=== PATIENT | male | born 1945 | race Caucasian/White ===

== ENCOUNTER 2018-12-17 10:22 | Inpatient (IN) ==
[2018-12-17] MEDS ORDERED: 0.9 % Sodium Chloride 1,000 ML IVC ONE (12:00)
[2018-12-17] MEDS ORDERED: Ondansetron 4 MG/2 ML VIAL IVP ONE (12:00)
[2018-12-17 12:11] LABS: Basophils # 0.1 K/mcL (0.0-0.2); Basophils % 0.3 %; Eosinophils # 0.1 K/mcL (0.0-0.6); Eosinophils % 0.3 %; Hematocrit 45.2 % (37.5-50.1); Hemoglobin 14.2 g/dL (12.9-16.9); Immature Granulocytes % 0.4 % (0-4); Lymphocytes % 15.3 %; Mean Corpuscular HGB Conc 31.4 g/dL (31.6-35.5); Mean Corpuscular Hemoglobin 28.5 pg (28.0-33.3); Mean Corpuscular Volume 90.8 fL (83.0-100.0); Mean Platelet Volume 9.4 fL (9.4-12.4); Monocytes # 1.5 K/mcL (0.0-1.3); Monocytes % 7.6 %; Platelet Count 423 K/mcL (140-400); Red Blood Count 4.98 M/mcL (4.19-5.50); Red Cell Distribution Width 13.9 % (11.5-14.5); Segmented Neutrophils % 76.1 %; White Blood Count 19.7 K/mcL (4.3-11.1)
[2018-12-17 12:36] LABS: Alanine Aminotransferase 7 Units/L (7-52); Albumin 4.5 g/dL (3.5-5.7); Albumin/Globulin Ratio 1.3 (1.1-2.2); Alkaline Phosphatase 165 Units/L (34-104); Aspartate Amino Transferase 16 Units/L (13-39); BUN/Creatinine Ratio 20 (6-26); Bilirubin,Direct 0.2 mg/dL (0.0-0.2); Bilirubin,Indirect 0.5 mg/dL (0.0-1.2); Bilirubin,Total 0.7 mg/dL (0.3-1.0); Blood Urea Nitrogen 20 mg/dL (8-23); Calcium 10.2 mg/dL (8.6-10.3); Carbon Dioxide 29 mEq/L (23-29); Chloride 99 mEq/L (98-107); Globulin 3.5 g/dL (2.4-3.5); Glucose 119 mg/dL (70-105); Lipase < 3 Units/L (11-82); Osmolality,Calculated 288 (280-300); Potassium 3.9 mEq/L (3.5-5.1); Sodium 137 mEq/L (136-145); eGFR For African Americans > 60 (> 60); eGFR For Non-African Americans > 60 (> 60)
[2018-12-17] MEDS ORDERED: Famotidine 20 MG/2 ML VIAL IVP ONE (13:10)
[2018-12-17] MEDS ORDERED: Ondansetron 4 MG/2 ML VIAL IVP PRN (14:47)
[2018-12-17] MEDS: Piperacillin/Tazobactam 3.375 GM in 0.9 % Sodium Chloride Mini Bag 100 ML IVPB SCH ×2 (15:59→23:55)
[2018-12-17] MEDS: 0.9 % Sodium Chloride 1,000 ML IVC SCH (15:59)
[2018-12-17] MEDS: diazePAM 10 MG/2 ML SYRINGE IVP SCH ×2 (16:01→23:56)
[2018-12-17] MEDS: *HR* Heparin 5,000 UNIT/ML VIAL SQ SCH (17:12)
[2018-12-18 06:17] LABS: Hematocrit 34.7 % (37.5-50.1); Mean Corpuscular HGB Conc 31.1 g/dL (31.6-35.5); Mean Corpuscular Hemoglobin 28.4 pg (28.0-33.3); Mean Corpuscular Volume 91.3 fL (83.0-100.0); Mean Platelet Volume 9.3 fL (9.4-12.4); Platelet Count 270 K/mcL (140-400); Red Cell Distribution Width 13.8 % (11.5-14.5)
[2018-12-18 06:20] LABS: Hemoglobin 10.8 g/dL (12.9-16.9); White Blood Count 8.2 K/mcL (4.3-11.1)
[2018-12-18] MEDS: *HR* Heparin 5,000 UNIT/ML VIAL SQ SCH ×2 (06:21→18:09)
[2018-12-18 06:38] LABS: BUN/Creatinine Ratio 20 (6-26); Blood Urea Nitrogen 17 mg/dL (8-23); Calcium 8.5 mg/dL (8.6-10.3); Carbon Dioxide 25 mEq/L (23-29); Chloride 105 mEq/L (98-107); Glucose 89 mg/dL (70-105); Osmolality,Calculated 287 (280-300); Potassium 3.7 mEq/L (3.5-5.1); Sodium 138 mEq/L (136-145); eGFR For African Americans > 60 (> 60); eGFR For Non-African Americans > 60 (> 60)
[2018-12-18] MEDS: Piperacillin/Tazobactam 3.375 GM in 0.9 % Sodium Chloride Mini Bag 100 ML IVPB SCH ×2 (09:21→14:57)
[2018-12-18] MEDS: 0.9 % Sodium Chloride 1,000 ML IVC SCH ×3 (09:21→22:24)
[2018-12-18] MEDS: diazePAM 10 MG/2 ML SYRINGE IVP SCH (09:23)
[2018-12-18] MEDS ORDERED: *HR* LORazepam 2 MG/ML VIAL IVP PRN (10:35)
[2018-12-18] MEDS ORDERED: Saliva Stimulant 100ml BOTTLE PO PRN (10:42)
[2018-12-18] MEDS ORDERED: Chloraseptic Spray 177 ML BOTTLE MM PRN (10:42)
[2018-12-18] MEDS ORDERED: Ketorolac 30 MG/ML VIAL IVP ONE (10:46)
[2018-12-18] MEDS: Pantoprazole 40 MG VIAL IVP SCH (11:33)
[2018-12-18] MEDS: Levothyroxine Sodium 100 MCG VIAL IVP SCH (11:33)
[2018-12-19] MEDS: Piperacillin/Tazobactam 3.375 GM in 0.9 % Sodium Chloride Mini Bag 100 ML IVPB SCH ×2 (00:10→06:58)
[2018-12-19 06:03] LABS: Basophils % 0.7 %; Eosinophils # 0.1 K/mcL (0.0-0.6); Eosinophils % 1.3 %; Hematocrit 33.4 % (37.5-50.1); Hemoglobin 10.7 g/dL (12.9-16.9); Immature Granulocytes % 0.3 % (0-4); Lymphocytes # 1.8 K/mcL (0.6-4.6); Lymphocytes % 28.6 %; Mean Corpuscular Hemoglobin 28.7 pg (28.0-33.3); Mean Corpuscular Volume 89.5 fL (83.0-100.0); Mean Platelet Volume 9.2 fL (9.4-12.4); Monocytes # 0.7 K/mcL (0.0-1.3); Monocytes % 10.6 %; Neutrophils # 3.6 K/mcL (1.6-8.9); Platelet Count 236 K/mcL (140-400); Red Blood Count 3.73 M/mcL (4.19-5.50); Red Cell Distribution Width 13.3 % (11.5-14.5); Segmented Neutrophils % 58.5 %; White Blood Count 6.2 K/mcL (4.3-11.1)
[2018-12-19] MEDS: *HR* Heparin 5,000 UNIT/ML VIAL SQ SCH ×2 (06:05→17:41)
[2018-12-19 06:20] LABS: BUN/Creatinine Ratio 16 (6-26); Blood Urea Nitrogen 13 mg/dL (8-23); Calcium 8.5 mg/dL (8.6-10.3); Carbon Dioxide 23 mEq/L (23-29); Chloride 104 mEq/L (98-107); Glucose 67 mg/dL (70-105); Osmolality,Calculated 280 (280-300); Potassium 3.3 mEq/L (3.5-5.1); Sodium 136 mEq/L (136-145); eGFR For African Americans > 60 (> 60); eGFR For Non-African Americans > 60 (> 60)
[2018-12-19 06:23] LABS: Magnesium 1.6 mg/dL (1.6-2.6); Phosphorous 3.2 mg/dL (2.7-4.5)
[2018-12-19] MEDS: 0.9 % Sodium Chloride 1,000 ML IVC SCH ×2 (08:03→22:45)
[2018-12-19] MEDS ORDERED: diazePAM 2 MG TABLET PO PRN (11:40)
[2018-12-19] MEDS: Gabapentin 100 MG CAPSULE PO SCH (19:59)
[2018-12-20 04:34] LABS: Hematocrit 32.9 % (37.5-50.1); Hemoglobin 10.3 g/dL (12.9-16.9); Mean Corpuscular HGB Conc 31.3 g/dL (31.6-35.5); Mean Corpuscular Hemoglobin 28.4 pg (28.0-33.3); Mean Corpuscular Volume 90.6 fL (83.0-100.0); Mean Platelet Volume 9.4 fL (9.4-12.4); Platelet Count 255 K/mcL (140-400); Red Blood Count 3.63 M/mcL (4.19-5.50); Red Cell Distribution Width 13.4 % (11.5-14.5); White Blood Count 5.1 K/mcL (4.3-11.1)
[2018-12-20 04:51] LABS: BUN/Creatinine Ratio 11 (6-26); Blood Urea Nitrogen 8 mg/dL (8-23); Calcium 8.5 mg/dL (8.6-10.3); Carbon Dioxide 27 mEq/L (23-29); Chloride 107 mEq/L (98-107); Glucose 85 mg/dL (70-105); Osmolality,Calculated 286 (280-300); Potassium 3.5 mEq/L (3.5-5.1); Sodium 139 mEq/L (136-145); eGFR For African Americans > 60 (> 60); eGFR For Non-African Americans > 60 (> 60)
[2018-12-20] MEDS: *HR* Heparin 5,000 UNIT/ML VIAL SQ SCH ×2 (06:10→17:01)
[2018-12-20] MEDS: Gabapentin 100 MG CAPSULE PO SCH ×2 (08:28→21:11)
[2018-12-20] MEDS ORDERED: traMADol 50 MG TABLET PO PRN (09:50)
[2018-12-20] MEDS ORDERED: Acetaminophen 325 MG TABLET PO PRN (09:50)
[2018-12-20] MEDS ORDERED: diazePAM 2 MG TABLET PO PRN (09:51)
[2018-12-21] MEDS: *HR* Heparin 5,000 UNIT/ML VIAL SQ SCH ×2 (05:30→17:13)
[2018-12-21] MEDS: 0.9 % Sodium Chloride 1,000 ML IVC SCH (07:22)
[2018-12-21] MEDS: Levothyroxine Sodium 100 MCG VIAL IVP SCH (07:22)
[2018-12-21] MEDS: Pantoprazole 40 MG VIAL IVP SCH (07:22)
[2018-12-21] MEDS: Gabapentin 100 MG CAPSULE PO SCH ×2 (08:26→20:56)
[2018-12-22] MEDS: *HR* Heparin 5,000 UNIT/ML VIAL SQ SCH ×2 (05:42→17:31)
[2018-12-22] MEDS ORDERED: *HR* FentaNYL (PF) 100 MCG/2 ML VIAL ONE (07:52)
[2018-12-22] MEDS ORDERED: *HR* Midazolam HCl 5 MG/5 ML VIAL IVP ONE ×2 (07:52→08:08)
[2018-12-22] MEDS ORDERED: *HR* FentaNYL (PF) 100 MCG/2 ML VIAL IVP ONE (08:08)
[2018-12-22] MEDS: Gabapentin 100 MG CAPSULE PO SCH ×2 (09:30→22:00)
[2018-12-22] MEDS ORDERED: Barium Sulfate (Liquid Polibar Plus) 1 BOTTLE ORAL.SUSP RC ONE (10:20)
[2018-12-22 12:02] LABS: Basophils % 0.5 %; Eosinophils # 0.1 K/mcL (0.0-0.6); Eosinophils % 1.3 %; Hematocrit 34.9 % (37.5-50.1); Immature Granulocytes % 0.2 % (0-4); Lymphocytes # 1.8 K/mcL (0.6-4.6); Lymphocytes % 29.1 %; Mean Corpuscular HGB Conc 31.5 g/dL (31.6-35.5); Mean Corpuscular Hemoglobin 28.8 pg (28.0-33.3); Mean Corpuscular Volume 91.4 fL (83.0-100.0); Mean Platelet Volume 9.2 fL (9.4-12.4); Monocytes # 0.5 K/mcL (0.0-1.3); Monocytes % 8.1 %; Neutrophils # 3.8 K/mcL (1.6-8.9); Platelet Count 258 K/mcL (140-400); Red Blood Count 3.82 M/mcL (4.19-5.50); Red Cell Distribution Width 13.5 % (11.5-14.5); Segmented Neutrophils % 60.8 %; White Blood Count 6.2 K/mcL (4.3-11.1)
[2018-12-22 12:11] LABS: BUN/Creatinine Ratio 4 (6-26); Blood Urea Nitrogen 3 mg/dL (8-23); Calcium 8.8 mg/dL (8.6-10.3); Carbon Dioxide 28 mEq/L (23-29); Chloride 105 mEq/L (98-107); Glucose 87 mg/dL (70-105); Osmolality,Calculated 286 (280-300); Potassium 3.5 mEq/L (3.5-5.1); Sodium 140 mEq/L (136-145); eGFR For African Americans > 60 (> 60); eGFR For Non-African Americans > 60 (> 60)
[2018-12-23] MEDS: *HR* Heparin 5,000 UNIT/ML VIAL SQ SCH ×2 (05:19→17:39)
[2018-12-23] MEDS ORDERED: *HR* FentaNYL (PF) 100 MCG/2 ML VIAL ONE (07:13)
[2018-12-23] MEDS ORDERED: *HR* Propofol 200 MG/20 ML VIAL IVP ONE (07:14)
[2018-12-23] MEDS ORDERED: *HR* Succinylcholine 200 MG/10 ML VIAL IVP ONE (07:14)
[2018-12-23] MEDS ORDERED: *HR* Rocuronium Bromide 50 MG/5 ML VIAL ONE ×2 (07:14→09:48)
[2018-12-23] MEDS ORDERED: Lidocaine -MPF 2% 2 ML VIAL ONE (07:14)
[2018-12-23] MEDS ORDERED: *HR* HYDROmorphone (PF) 1 MG/ML SYRINGE IVP PRN (07:42)
[2018-12-23] MEDS ORDERED: *HR* Midazolam HCl 2 MG/2 ML VIAL IVP PRN (07:42)
[2018-12-23] MEDS ORDERED: *HR* Meperidine 25 MG/ML SYRINGE IVP PRN (07:42)
[2018-12-23] MEDS ORDERED: Ringers Solution, Lactated 1,000 ML IVC SCH (07:45)
[2018-12-23] MEDS ORDERED: Piperacillin/Tazobactam 3.375 GM in 0.9 % Sodium Chloride Mini Bag 100 ML IVPB ONE (08:00)
[2018-12-23] MEDS ORDERED: Acetaminophen IV 1,000 MG/100 ML INFUS..BTL IVPB ONE (08:07)
[2018-12-23] MEDS ORDERED: ROPIVACAINE/PF/NS 0.25% 1 EACH SYRINGE INTRAART ONE (08:30)
[2018-12-23] MEDS ORDERED: *HR* HYDROMORPHONE 2 MG/ML VIAL ONE (09:15)
[2018-12-23] MEDS ORDERED: Dexamethasone 4 MG/ML VIAL ONE (10:21)
[2018-12-23] MEDS ORDERED: Ondansetron 4 MG/2 ML VIAL ONE (10:42)
[2018-12-23] MEDS: *HR* Promethazine 25 MG/ML VIAL IVP PRN ×2 (11:45→11:50)
[2018-12-23] MEDS ORDERED: Ondansetron 4 MG/2 ML VIAL IVP PRN (12:15)
[2018-12-23] MEDS ORDERED: *HR* LORazepam 2 MG/ML VIAL IVP PRN (12:15)
[2018-12-23] MEDS: Gabapentin 100 MG CAPSULE PO SCH (12:57)
[2018-12-23] MEDS: Acetaminophen IV 1,000 MG/100 ML INFUS..BTL IVPB SCH ×2 (14:28→17:38)
[2018-12-23] MEDS ORDERED: Piperacillin/Tazobactam 3.375 GM in 0.9 % Sodium Chloride Mini Bag 100 ML IVPB SCH (16:00)
[2018-12-23] MEDS: Morphine PCA 30 MG/ 30 ML 30 ML PCA.VIAL IVC PRN (17:26)
[2018-12-23] MEDS: Pantoprazole 40 MG VIAL IVP SCH (17:39)
[2018-12-23] MEDS: 0.9 % Sodium Chloride 500 ML ONE (18:01)
[2018-12-23] MEDS: Piperacillin/Tazobactam 3.375 GM in 0.9 % Sodium Chloride Mini Bag 100 ML IVPB SCH ×2 (23:09→23:10)
[2018-12-24] MEDS: Acetaminophen IV 1,000 MG/100 ML INFUS..BTL IVPB SCH ×4 (00:13→17:58)
[2018-12-24 05:24] LABS: Basophils % 0.1 %; Hematocrit 35.1 % (37.5-50.1); Hemoglobin 11.2 g/dL (12.9-16.9); Immature Granulocytes % 0.5 % (0-4); Lymphocytes # 1.3 K/mcL (0.6-4.6); Lymphocytes % 7.9 %; Mean Corpuscular HGB Conc 31.9 g/dL (31.6-35.5); Mean Corpuscular Hemoglobin 28.5 pg (28.0-33.3); Mean Corpuscular Volume 89.3 fL (83.0-100.0); Mean Platelet Volume 9.7 fL (9.4-12.4); Monocytes # 0.6 K/mcL (0.0-1.3); Monocytes % 3.7 %; Neutrophils # 14.1 K/mcL (1.6-8.9); Platelet Count 247 K/mcL (140-400); Red Blood Count 3.93 M/mcL (4.19-5.50); Red Cell Distribution Width 13.4 % (11.5-14.5); Segmented Neutrophils % 87.8 %
[2018-12-24 05:37] LABS: White Blood Count 16.1 K/mcL (4.3-11.1)
[2018-12-24 05:40] LABS: BUN/Creatinine Ratio 12 (6-26); Blood Urea Nitrogen 11 mg/dL (8-23); Calcium 8.8 mg/dL (8.6-10.3); Carbon Dioxide 25 mEq/L (23-29); Chloride 103 mEq/L (98-107); Glucose 147 mg/dL (70-105); Osmolality,Calculated 282 (280-300); Potassium 4.1 mEq/L (3.5-5.1); Sodium 135 mEq/L (136-145); eGFR For African Americans > 60 (> 60); eGFR For Non-African Americans > 60 (> 60)
[2018-12-24] MEDS: Pantoprazole 40 MG VIAL IVP SCH ×2 (05:47→17:55)
[2018-12-24] MEDS: *HR* Heparin 5,000 UNIT/ML VIAL SQ SCH ×2 (05:49→17:55)
[2018-12-24] MEDS: Piperacillin/Tazobactam 3.375 GM in 0.9 % Sodium Chloride Mini Bag 100 ML IVPB SCH ×3 (05:51→22:04)
[2018-12-24] MEDS: Levothyroxine Sodium 100 MCG VIAL IVP SCH (09:43)
[2018-12-24] MEDS: 0.9 % Sodium Chloride 1,000 ML IVC SCH ×2 (10:01→17:56)
[2018-12-25] MEDS: Acetaminophen IV 1,000 MG/100 ML INFUS..BTL IVPB SCH ×5 (00:19→23:17)
[2018-12-25] MEDS ORDERED: 0.9 % Sodium Chloride 500 ML ONE (02:09)
[2018-12-25] MEDS: 0.9 % Sodium Chloride 500 ML ONE (02:13)
[2018-12-25] MEDS: 0.9 % Sodium Chloride 1,000 ML IVC SCH ×4 (05:32→23:45)
[2018-12-25] MEDS: *HR* Heparin 5,000 UNIT/ML VIAL SQ SCH ×2 (05:32→17:05)
[2018-12-25] MEDS: Morphine PCA 30 MG/ 30 ML 30 ML PCA.VIAL IVC PRN (05:33)
[2018-12-25] MEDS: Piperacillin/Tazobactam 3.375 GM in 0.9 % Sodium Chloride Mini Bag 100 ML IVPB SCH ×3 (06:42→22:10)
[2018-12-25] MEDS: Pantoprazole 40 MG VIAL IVP SCH ×2 (06:42→17:05)
[2018-12-25 06:44] LABS: Hemoglobin 9.8 g/dL (12.9-16.9); Immature Granulocytes % 0.5 % (0-4); Lymphocytes # 1.1 K/mcL (0.6-4.6); Lymphocytes % 7.8 %; Mean Corpuscular HGB Conc 31.6 g/dL (31.6-35.5); Mean Corpuscular Hemoglobin 28.8 pg (28.0-33.3); Mean Corpuscular Volume 91.2 fL (83.0-100.0); Mean Platelet Volume 9.8 fL (9.4-12.4); Monocytes # 0.7 K/mcL (0.0-1.3); Monocytes % 4.9 %; Neutrophils # 12.5 K/mcL (1.6-8.9); Platelet Count 242 K/mcL (140-400); Red Cell Distribution Width 13.9 % (11.5-14.5); Segmented Neutrophils % 86.8 %; White Blood Count 14.4 K/mcL (4.3-11.1)
[2018-12-25 07:09] LABS: BUN/Creatinine Ratio 21 (6-26); Blood Urea Nitrogen 18 mg/dL (8-23); Calcium 8.6 mg/dL (8.6-10.3); Carbon Dioxide 25 mEq/L (23-29); Chloride 105 mEq/L (98-107); Glucose 112 mg/dL (70-105); Osmolality,Calculated 287 (280-300); Potassium 4.1 mEq/L (3.5-5.1); Sodium 137 mEq/L (136-145); eGFR For African Americans > 60 (> 60); eGFR For Non-African Americans > 60 (> 60)
[2018-12-25] MEDS: Levothyroxine Sodium 100 MCG VIAL IVP SCH (09:43)
[2018-12-26 04:43] LABS: Basophils % 0.1 %; Eosinophils % 0.4 %; Hemoglobin 9.3 g/dL (12.9-16.9); Immature Granulocytes % 0.4 % (0-4); Lymphocytes # 2.1 K/mcL (0.6-4.6); Mean Corpuscular Hemoglobin 28.7 pg (28.0-33.3); Mean Corpuscular Volume 92.6 fL (83.0-100.0); Mean Platelet Volume 9.9 fL (9.4-12.4); Monocytes # 0.6 K/mcL (0.0-1.3); Monocytes % 6.8 %; Neutrophils # 5.4 K/mcL (1.6-8.9); Platelet Count 221 K/mcL (140-400); Red Blood Count 3.24 M/mcL (4.19-5.50); Red Cell Distribution Width 14.1 % (11.5-14.5); Segmented Neutrophils % 66.3 %; White Blood Count 8.1 K/mcL (4.3-11.1)
[2018-12-26] MEDS: Piperacillin/Tazobactam 3.375 GM in 0.9 % Sodium Chloride Mini Bag 100 ML IVPB SCH ×3 (05:01→22:45)
[2018-12-26] MEDS: *HR* Heparin 5,000 UNIT/ML VIAL SQ SCH ×2 (05:02→17:22)
[2018-12-26] MEDS: Pantoprazole 40 MG VIAL IVP SCH ×2 (05:02→17:17)
[2018-12-26] MEDS: Acetaminophen IV 1,000 MG/100 ML INFUS..BTL IVPB SCH ×3 (05:02→17:21)
[2018-12-26] MEDS: Levothyroxine Sodium 100 MCG VIAL IVP SCH (08:00)
[2018-12-26] MEDS: 0.9 % Sodium Chloride 1,000 ML IVC SCH ×2 (08:02→17:23)
[2018-12-27] MEDS: Acetaminophen IV 1,000 MG/100 ML INFUS..BTL IVPB SCH ×4 (00:58→17:12)
[2018-12-27] MEDS: 0.9 % Sodium Chloride 1,000 ML IVC SCH (02:29)
[2018-12-27 06:05] LABS: BUN/Creatinine Ratio 7 (6-26); Blood Urea Nitrogen 6 mg/dL (8-23); Calcium 8.7 mg/dL (8.6-10.3); Carbon Dioxide 29 mEq/L (23-29); Chloride 103 mEq/L (98-107); Glucose 86 mg/dL (70-105); Osmolality,Calculated 283 (280-300); Potassium 3.2 mEq/L (3.5-5.1); Sodium 138 mEq/L (136-145); eGFR For African Americans > 60 (> 60); eGFR For Non-African Americans > 60 (> 60)
[2018-12-27] MEDS: *HR* Heparin 5,000 UNIT/ML VIAL SQ SCH ×2 (06:22→17:12)
[2018-12-27] MEDS: Pantoprazole 40 MG VIAL IVP SCH ×2 (06:23→17:12)
[2018-12-27] MEDS: Piperacillin/Tazobactam 3.375 GM in 0.9 % Sodium Chloride Mini Bag 100 ML IVPB SCH ×3 (06:23→22:21)
[2018-12-27] MEDS ORDERED: *HR* OxyCODONE/APAP 5/325 TABLET PO PRN (09:54)
[2018-12-27] MEDS: Levothyroxine Sodium 100 MCG VIAL IVP SCH (10:21)
[2018-12-28] MEDS: Acetaminophen IV 1,000 MG/100 ML INFUS..BTL IVPB SCH ×2 (00:04→06:20)
[2018-12-28] MEDS: *HR* Heparin 5,000 UNIT/ML VIAL SQ SCH (06:25)
[2018-12-28] MEDS: Piperacillin/Tazobactam 3.375 GM in 0.9 % Sodium Chloride Mini Bag 100 ML IVPB SCH (06:31)
[2018-12-28] MEDS: Pantoprazole 40 MG VIAL IVP SCH (06:31)
[2018-12-28 06:55] VITALS: BP 142/94
[2018-12-28] MEDS: Levothyroxine Sodium 100 MCG VIAL IVP SCH (08:44)
[2018-12-28] MEDS ORDERED: FLU Vac QV 19-20 (6Month+)/PF 0.5 ML SYRINGE IM ONE (10:26)
== END 2018-12-28 11:01 | disposition home or self-care (01) | DRG 329 ==
LOC: EMEROOARM 10:22 → 3ANU 13:33
PROVIDERS: ADMIT Surgery; ATTEND Surgery

== ENCOUNTER 2019-06-03 07:59 | Observation (INO) ==
[~2019-06-03 07:59] MED LIST: Famotidine 20 MG/2 ML VIAL IVP ONE; Gabapentin 100 MG CAPSULE PO ONE
[2019-06-03] MEDS ORDERED: CeFAZolin Syr 2,000MG/20 ML 2,000 MG/20 ML SYRINGE IVPB ONE (08:22)
[2019-06-03] MEDS ORDERED: Ringers Solution, Lactated 1,000 ML IVC SCH ×2 (08:30→13:19)
[2019-06-03 08:41] LABS: Hemoglobin 9.7 g/dL (12.9-16.9)
[2019-06-03] MEDS ORDERED: Ethanol\\Acetic Acid\\Na Ace\\Ben 1,000 ML IRRIG.SOLN IR ONE (10:20)
[2019-06-03] MEDS ORDERED: *HR* Propofol 200 MG/20 ML VIAL IVP ONE (10:24)
[2019-06-03] MEDS ORDERED: Lidocaine -MPF 2% 2 ML VIAL ONE (10:24)
[2019-06-03] MEDS ORDERED: Dexamethasone 4 MG/ML VIAL ONE (10:24)
[2019-06-03] MEDS ORDERED: *HR* FentaNYL (PF) 100 MCG/2 ML VIAL ONE ×2 (10:24→10:27)
[2019-06-03] MEDS ORDERED: Ondansetron 4 MG/2 ML VIAL ONE (10:24)
[2019-06-03] MEDS ORDERED: *HR* Succinylcholine 200 MG/10 ML VIAL IVP ONE (10:25)
[2019-06-03] MEDS ORDERED: Ropivacaine/PF 0.5% 30 ML VIAL ONE (10:33)
[2019-06-03] MEDS ORDERED: ROPIVACAINE/PF/NS 0.25% 1 EACH SYRINGE INTRAART ONE (10:33)
[2019-06-03] MEDS ORDERED: EPHEDrine 50 MG/ML VIAL ONE (11:16)
[2019-06-03] MEDS ORDERED: DIPHENHYDRAMINE PO PRN (13:19)
[2019-06-03] MEDS ORDERED: *HR* OxyCODONE Immed Rel 5 MG TABLET PO PRN (13:19)
[2019-06-03] MEDS ORDERED: Naloxone 0.4 MG/ML INJ IVP PRN (13:19)
[2019-06-03] MEDS ORDERED: *HR* OxyCODONE/APAP 5/325 TABLET PO PRN (13:19)
[2019-06-03] MEDS ORDERED: Sennosides 8.6 MG TABLET PO PRN (13:19)
[2019-06-03] MEDS ORDERED: ACETAMINOPHEN PO PRN (13:19)
[2019-06-03] MEDS ORDERED: Indomethacin 25 MG CAPSULE PO PRN (13:19)
[2019-06-03] MEDS ORDERED: [UNRECOGNIZED DRUG - OTHER] PO PRN (13:19)
[2019-06-03] MEDS ORDERED: MOM Conc 10 ML UD.LIQ PO PRN (13:19)
[2019-06-03] MEDS ORDERED: Ondansetron 4 MG/2 ML VIAL IVP PRN (13:19)
[2019-06-03] MEDS ORDERED: Ibuprofen 600 MG TABLET PO PRN (13:19)
[2019-06-03] MEDS ORDERED: *HR* Enoxaparin 30 MG/0.3 ML SYRINGE SQ SCH ×2 (18:00)
[2019-06-03] MEDS ORDERED: ceFAZolin 2,000 MG in 0.9 % Sodium Chloride 100 ML IVPB SCH (19:00)
[2019-06-03 20:03] VITALS: BP 119/75
[2019-06-03] MEDS ORDERED: Gabapentin 100 MG CAPSULE PO SCH (21:00)
[2019-06-04] MEDS ORDERED: lisinopriL 5 MG TABLET PO SCH (09:00)
== END 2019-06-03 18:54 | disposition home health service (06) ==
LOC: SAMDAY 07:59 → INTOOBSV 13:09 → 3NENU 13:09
PROVIDERS: ADMIT Orthopaedic Surgery; ATTEND Orthopaedic Surgery